=== PATIENT | female | born 1975 | race Two or more races ===

== ENCOUNTER 2023-06-06 13:05 | Emergency (ER) | payer OTHER ==
[~2023-06-06] VITALS: Ht 170.2 cm; Wt 73.5 kg
[2023-06-06] MEDS ORDERED: HUMALOG100 UNIT/2 (13:27)
[2023-06-06] MEDS ORDERED: NEURONTIN300 MG PO (13:28)
[2023-06-06] MEDS ORDERED: LANTUS SOL100 UNIT/1 (13:28)
[2023-06-06] MEDS ORDERED: ADULT LOW DOSE81 M1 PO (13:29)
[2023-06-06] MEDS ORDERED: COZAAR50 MG PO (13:29)
[2023-06-06] MEDS ORDERED: PERCOCET 10-321 EACH PO (13:31)
== END 2023-06-06 18:35 | disposition home or self-care (01) ==
LOC: ER 13:05
PROVIDERS: Nurse Practitioner Family
DX: R10.11 Right upper quadrant pain (principal); K80.20 Calculus of gallbladder without cholecystitis without obstruction; E11.9 Type 2 diabetes mellitus without complications; Z79.4 Long term (current) use of insulin; I10 Essential (primary) hypertension; Z88.8 Allergy status to other drugs, medicaments and biological substances; Z85.43 Personal history of malignant neoplasm of ovary

== ENCOUNTER 2023-10-06 19:06 | Inpatient (IN) | payer OTHER ==
[~2023-10-06] VITALS: Ht 167.6 cm; Wt 68.0 kg
[~2023-10-06 19:06] MED LIST: ADULT LOW DOSE81 M1 PO; COZAAR50 MG PO; HUMALOG100 UNIT/2; LANTUS SOL100 UNIT/1; NEURONTIN300 MG PO; PERCOCET 10-321 EACH PO
[2023-10-07] MEDS ORDERED: KETOROLAC TROMETHAMINE 30 MG VIAL IV STA (00:32)
[2023-10-07] MEDS ORDERED: RINGERS SOLUTION,LACTATED 1,000 ML IV STA (00:32)
[2023-10-07] MEDS ORDERED: CLINDAMYCIN PHOSPHATE 150 MG/ML (900mg) IV STA (00:33)
[2023-10-07] MEDS ORDERED: hydrOXYzine PAMOATE 50 MG CAPSULE PO STA (00:33)
[2023-10-07] MEDS ORDERED: ACETAMINOPHEN 500 MG GEL..CAP PO STA (00:37)
[2023-10-07] MEDS ORDERED: INSULIN REGULAR, HUMAN 300 UNITS/3 ML UNITS SUBCUTANEO STA (00:38)
[2023-10-07] MEDS ORDERED: INSULIN REGULAR, HUMAN 300 UNITS/3 ML UNITS IV STA (00:39)
[2023-10-07 01:44] LABS: HEMATOCRIT 28.5 % (36.0-45.00); HEMOGLOBIN 9.2 g/dL (12.0-15.00); MEAN CELL VOLUME 81.9 fL (80.00-100.00); MEAN CORPUSCULAR HEMOGLOBIN 26.5 pg (27.00-32.0); MEAN CORPUSCULAR HGB CONC 32.4 g/dl (32.0-36.0); PLATELET COUNT 227 K/uL (150-450); RED BLOOD COUNT 3.48 M/uL (4.00-6.00); RED CELL DISTRIBUTION WIDTH 15.2 % (11.5-14.5)
[2023-10-07 02:04] LABS: URINE APPEARANCE Clear; URINE BILIRRUBIN Negative (NEGATIVE); URINE BLOOD Negative; URINE COLOR Yellow; URINE LEUKOCYTE Negative; URINE NITRATE Negative; URINE PROTEIN Negative (NEGATIVE)
[2023-10-07 02:04] LABS: INR 1.07; PARTIAL THROMBOPLASTIN TIME 26.9 SECONDS (22.0-34.0); PROTHROMBIN TIME 11.2 SECONDS (9.0-11.5)
[2023-10-07 02:07] LABS: URINE BACTERIA 341.3 uL (0.0-1933); URINE EPITHELIAL CELLS 29.9 uL (0.0-38.8); URINE WBC 10.8 uL (0.0-23.2)
[2023-10-07 02:12] LABS: URINE GLUCOSE >=1000 MG/DL (NEGATIVE)
[2023-10-07 02:12] LABS: ERYTHROCYTE SEDIMENTATION RATE 100 mm/hr
[2023-10-07 02:14] LABS: ALKALINE PHOSPHATASE 115 U/L (50-136); ALT/SGPT 7 U/L (12-78); ANION GAP 13 (10.0-20.0); BILIRUBIN TOTAL 0.48 mg/dL (0.3-1.2); BLOOD UREA NITROGEN 8 mg/dL (7-18); BUN CREA RATIO 8 (7.0-25.0); CALCIUM 8.7 mg/dL (8.5-10.1); CARBON DIOXIDE 24 mEq/L (21-32); CHLORIDE 98 mmol/L (98-107); CREATININE SERUM 1.05 mg/dL (0.55-1.02); GFR 56.18; GLOBULINA 5.7 G/DL (2.4-3.5); POTASSIUM 3.49 mEq/L (3.5-5.1); SODIUM 132 mmol/L (136-145); TOTAL PROTEIN 8.7 gm/dL (6.4-8.2)
[2023-10-07 02:16] LABS: AST/SGOT < 3 U/L (15-37); OSMOLALITY SERUM 285 MOSM/KG (275-295)
[2023-10-07 02:40] LABS: GLUCOSE FASTING 493 mg/dL (65-100)
[2023-10-07] MEDS ORDERED: MORPHINE SULFATE 4 MG/ML VIAL IV ONE (08:45)
[2023-10-07] MEDS ORDERED: VANCOMYCIN HCL 1,000 MG VIAL IV ONE (09:15)
[2023-10-07] MEDS ORDERED: CEFEPIME HCL 2,000 MG in DEXTROSE 5 % IN WATER 100 ML IV SCH (10:15)
[2023-10-07] MEDS ORDERED: LOSARTAN POTASSIUM 50 MG TABLET PO SCH (10:17)
[2023-10-07] MEDS ORDERED: DEXTROSE 50 % IN WATER 0.5 G/ML DISP.SYRIN IV PRN (10:30)
[2023-10-07] MEDS ORDERED: INSULIN LISPRO 1,000 UNIT/10 ML UNITS SUBCUTANEO PRN (10:30)
[2023-10-07 11:57] LABS: HEMATOCRIT 29.1 % (36.0-45.00); HEMOGLOBIN 9.7 g/dL (12.0-15.00); MEAN CELL VOLUME 80.5 fL (80.00-100.00); MEAN CORPUSCULAR HEMOGLOBIN 26.8 pg (27.00-32.0); MEAN CORPUSCULAR HGB CONC 33.3 g/dl (32.0-36.0); PLATELET COUNT 259 K/uL (150-450); RED BLOOD COUNT 3.62 M/uL (4.00-6.00)
[2023-10-07 12:34] LABS: ALBUMIN 2.9 gm/dL (3.4-5.0); BILIRUBIN TOTAL 0.49 mg/dL (0.3-1.2); CALCIUM 9.1 mg/dL (8.5-10.1); CHOL HDL RATIO 3.1 (0-5.0); CREATININE SERUM 0.73 mg/dL (0.55-1.02); GFR 85.45; GLOBULINA 5.6 G/DL (2.4-3.5); POTASSIUM 3.43 mEq/L (3.5-5.1); TOTAL PROTEIN 8.5 gm/dL (6.4-8.2)
[2023-10-07 12:36] LABS: C-REACTIVE PROTEIN 24.8 MG/DL (0.00-0.29)
[2023-10-07] MEDS ORDERED: INSULIN LISPRO 1,000 UNIT/10 ML UNITS SUBCUTANEO SCH (13:00)
[2023-10-07] MEDS ORDERED: MEPERIDINE HCL/PF 25 MG/ML VIAL IM ONE (16:15)
[2023-10-07] MEDS ORDERED: FAMOTIDINE/PF 20 MG in 0.9 % SODIUM CHLORIDE 8 ML IV PUSH SCH (18:59)
[2023-10-07] MEDS ORDERED: ENALAPRILAT DIHYDRATE 1.25 MG/ML VIAL IV PRN (19:00)
[2023-10-07] MEDS ORDERED: ONDANSETRON HCL 4 MG in 0.9 % SODIUM CHLORIDE 50 ML IV PRN (19:00)
[2023-10-07] MEDS ORDERED: ACETAMINOPHEN 500 MG GEL..CAP PO PRN (19:00)
[2023-10-07] MEDS ORDERED: MORPHINE SULFATE 4 MG/ML VIAL IV PRN (19:15)
[2023-10-07] MEDS ORDERED: 0.9 % SODIUM CHLORIDE 1,000 ML IV SCH (19:15)
[2023-10-07] MEDS ORDERED: LORazepam 0.5 MG TABLET PO SCH (21:00)
[2023-10-07] MEDS ORDERED: VANCOMYCIN HCL 1,000 MG VIAL IV SCH (21:00)
[2023-10-07] MEDS ORDERED: INSULIN GLARGINE,HUM.REC.ANLOG 1,000 UNITS/10 ML UNITS SUBCUTANEO SCH (21:00)
[2023-10-08] MEDS ORDERED: INSULIN LISPRO 1,000 UNIT/10 ML UNITS SUBCUTANEO SCH (08:00)
[2023-10-08] MEDS ORDERED: SOD FERRIC GLUC COMPLX/SUCROSE 62.5 MG in 0.9 % SODIUM CHLORIDE 50 ML IV SCH (11:53)
[2023-10-08] MEDS ORDERED: TRAMADOL HCL 50 MG TABLET PO PRN (13:00)
[2023-10-08] MEDS ORDERED: METRONIDAZOLE/SODIUM CHLORIDE 100 ML IV SCH (20:07)
[2023-10-09] MEDS ORDERED: ENOXAPARIN SODIUM 40 MG/0.4 ML SYRINGE SUBCUTANEO SCH (09:00)
[2023-10-09] MEDS ORDERED: INSULIN GLARGINE,HUM.REC.ANLOG 1,000 UNITS/10 ML UNITS SUBCUTANEO STA (09:11)
[2023-10-09 11:48] LABS: HEMATOCRIT 24.9 % (36.0-45.00); HEMOGLOBIN 8.3 g/dL (12.0-15.00); MEAN CELL VOLUME 79.5 fL (80.00-100.00); MEAN CORPUSCULAR HEMOGLOBIN 26.5 pg (27.00-32.0); MEAN CORPUSCULAR HGB CONC 33.2 g/dl (32.0-36.0); PLATELET COUNT 282 K/uL (150-450); RED BLOOD COUNT 3.13 M/uL (4.00-6.00); RED CELL DISTRIBUTION WIDTH 14.9 % (11.5-14.5)
[2023-10-09 12:28] LABS: CALCIUM 8.2 mg/dL (8.5-10.1); CREATININE SERUM 0.43 mg/dL (0.55-1.02); GFR 157.39; MAGNESIUM 1.5 mg/dL (1.8-2.4); POTASSIUM 3.41 mEq/L (3.5-5.1)
[2023-10-09 12:38] LABS: T4 TOTAL 9.15 UG/DL (4.8-13.9); TSH 0.746 uIU/mL (0.358-3.74)
[2023-10-09] MEDS ORDERED: MAGNESIUM SULFATE IN WATER 50 ML IV ONE (12:45)
[2023-10-09] MEDS ORDERED: FUROsemide 20 MG/2 ML VIAL IV SCH (12:45)
[2023-10-09] MEDS ORDERED: POTASSIUM CHLORIDE 20MEQ/100ML H2O PB IV ONE (12:45)
[2023-10-09] MEDS ORDERED: FAMOtidine 20 MG TABLET PO SCH (21:00)
[2023-10-10] MEDS ORDERED: SODIUM CL 0.9% 50 ML IV.SOLN IV ONE (08:13)
[2023-10-10] MEDS ORDERED: INSULIN GLARGINE,HUM.REC.ANLOG 1,000 UNITS/10 ML UNITS SUBCUTANEO SCH ×3 (09:00)
[2023-10-10] MEDS ORDERED: SODIUM HYPOCHLORITE 1OZ TOP SCH (09:32)
[2023-10-10] MEDS ORDERED: MEPERIDINE HCL/PF 25 MG/ML VIAL IM PRN (12:00)
[2023-10-10 13:05] LABS: HEMATOCRIT 28.9 % (36.0-45.00); HEMOGLOBIN 9.6 g/dL (12.0-15.00); MEAN CELL VOLUME 83.2 fL (80.00-100.00); MEAN CORPUSCULAR HEMOGLOBIN 27.7 pg (27.00-32.0); MEAN CORPUSCULAR HGB CONC 33.2 g/dl (32.0-36.0); PLATELET COUNT 262 K/uL (150-450); RED BLOOD COUNT 3.47 M/uL (4.00-6.00); RED CELL DISTRIBUTION WIDTH 14.2 % (11.5-14.5)
[2023-10-11] MEDS ORDERED: BISACODYL 10 MG/SUPP.RECT SUPP.RECT RECTAL SCH (09:56)
[2023-10-11] MEDS ORDERED: LACTULOSE 20 G/30 ML BLIST.PACK PO STA (10:13)
[2023-10-11] MEDS ORDERED: MAGNESIUM HYDROXIDE 30 ML BLIST.PACK PO STA (10:14)
[2023-10-11] MEDS ORDERED: SUCRALFATE 1 G TABLET PO SCH (14:46)
[2023-10-11] MEDS ORDERED: FAMOTIDINE/PF 20 MG/2 ML VIAL IV PUSH SCH (14:46)
[2023-10-11] MEDS ORDERED: MEPERIDINE HCL/PF 25 MG/ML VIAL IM PRN (17:27)
[2023-10-11] MEDS ORDERED: PROMETHAZINE HCL 25 MG/ML AMPUL IM PRN (17:30)
[2023-10-12] MEDS ORDERED: VANCOMYCIN HCL 5 MG/ML REDILUIDO IV SCH (21:00)
[2023-10-13 07:23] LABS: POTASSIUM 3.03 mEq/L (3.5-5.1)
[2023-10-13 07:27] LABS: CREATININE SERUM 0.23 mg/dL (0.55-1.02); GFR 324.03
[2023-10-13 07:28] LABS: CALCIUM 6.4 mg/dL (8.5-10.1)
[2023-10-13] MEDS ORDERED: LACTOBACILLUS ACIDOPHILUS 1 CAP CAP PO SCH (09:00)
[2023-10-13] MEDS ORDERED: INSULIN GLARGINE,HUM.REC.ANLOG 1,000 UNITS/10 ML UNITS SUBCUTANEO SCH (09:00)
[2023-10-13] MEDS ORDERED: AMINO ACIDS 1 EACH TABLET PO SCH (09:00)
[2023-10-13] MEDS ORDERED: IRON FUM,PS/FOLIC/BCOMP,C NO.9 1 CAP CAPSULE PO SCH (09:00)
[2023-10-13] MEDS ORDERED: FOLIC ACID 1 MG TABLET PO SCH (09:00)
[2023-10-13 09:38] LABS: INR 1.2; PARTIAL THROMBOPLASTIN TIME 24.1 SECONDS (22.0-34.0); PROTHROMBIN TIME 12.4 SECONDS (9.0-11.5)
[2023-10-13 10:06] LABS: ALBUMIN 2.2 gm/dL (3.4-5.0); BILIRUBIN TOTAL 0.42 mg/dL (0.3-1.2); CALCIUM 8.3 mg/dL (8.5-10.1); CREATININE SERUM 0.42 mg/dL (0.55-1.02); GFR 161.72; GLOBULINA 4.6 G/DL (2.4-3.5); POTASSIUM 3.75 mEq/L (3.5-5.1); TOTAL PROTEIN 6.8 gm/dL (6.4-8.2)
[2023-10-13] MEDS ORDERED: POTASSIUM CHLORIDE IN WATER 100 ML IV ONE (10:35)
[2023-10-13 12:07] LABS: HEMATOCRIT 37.8 % (36.0-45.00); HEMOGLOBIN 12.5 g/dL (12.0-15.00); MEAN CELL VOLUME 82.4 fL (80.00-100.00); MEAN CORPUSCULAR HEMOGLOBIN 27.4 pg (27.00-32.0); MEAN CORPUSCULAR HGB CONC 33.2 g/dl (32.0-36.0); PLATELET COUNT 326 K/uL (150-450); RED BLOOD COUNT 4.58 M/uL (4.00-6.00); RED CELL DISTRIBUTION WIDTH 14.8 % (11.5-14.5)
[2023-10-13] MEDS ORDERED: MEPERIDINE HCL/PF 25 MG/ML VIAL IM PRN (21:00)
[2023-10-13] MEDS ORDERED: PROMETHAZINE HCL 25 MG/ML AMPUL IM PRN (21:00)
[2023-10-14] MEDS ORDERED: ONDANSETRON HCL 4 MG in 0.9 % SODIUM CHLORIDE 50 ML IV PRN (05:15)
[2023-10-14 08:35] LABS: ALBUMIN 2.1 gm/dL (3.4-5.0); BILIRUBIN TOTAL 0.31 mg/dL (0.3-1.2); CALCIUM 7.9 mg/dL (8.5-10.1); CREATININE SERUM 0.46 mg/dL (0.55-1.02); GFR 145.61; GLOBULINA 4.1 G/DL (2.4-3.5); MAGNESIUM 1.7 mg/dL (1.8-2.4); POTASSIUM 3.96 mEq/L (3.5-5.1); TOTAL PROTEIN 6.2 gm/dL (6.4-8.2)
[2023-10-14 10:17] LABS: PHOSPHOROUS 1.3 mg/dL (2.5-4.9)
[2023-10-14] MEDS ORDERED: POTASSIUM PHOS,M-BASIC-D-BASIC 45mM/15ml VIAL IV NR (10:30)
[2023-10-14 10:43] LABS: HEMATOCRIT 31.2 % (36.0-45.00); HEMOGLOBIN 10.4 g/dL (12.0-15.00); MEAN CELL VOLUME 82.9 fL (80.00-100.00); MEAN CORPUSCULAR HEMOGLOBIN 27.6 pg (27.00-32.0); MEAN CORPUSCULAR HGB CONC 33.3 g/dl (32.0-36.0); PLATELET COUNT 284 K/uL (150-450); RED BLOOD COUNT 3.77 M/uL (4.00-6.00); RED CELL DISTRIBUTION WIDTH 15.1 % (11.5-14.5)
[2023-10-14 11:09] LABS: ERYTHROCYTE SEDIMENTATION RATE 81 mm/hr
[2023-10-14] MEDS ORDERED: GABAPENTIN 400 MG CAPSULE PO SCH (11:44)
[2023-10-14] MEDS ORDERED: ENALAPRILAT DIHYDRATE 1.25 MG/ML VIAL IV ONE (12:32)
[2023-10-14] MEDS ORDERED: MORPHINE SULFATE 4 MG/ML VIAL IV SCH (13:00)
[2023-10-16 06:41] LABS: HEMATOCRIT 28.7 % (36.0-45.00); HEMOGLOBIN 9.6 g/dL (12.0-15.00); MEAN CELL VOLUME 82.3 fL (80.00-100.00); MEAN CORPUSCULAR HEMOGLOBIN 27.5 pg (27.00-32.0); MEAN CORPUSCULAR HGB CONC 33.4 g/dl (32.0-36.0); PLATELET COUNT 289 K/uL (150-450); RED BLOOD COUNT 3.49 M/uL (4.00-6.00); RED CELL DISTRIBUTION WIDTH 15.2 % (11.5-14.5)
[2023-10-16 07:43] LABS: ALBUMIN 1.9 gm/dL (3.4-5.0); BILIRUBIN TOTAL 0.25 mg/dL (0.3-1.2); CALCIUM 7.9 mg/dL (8.5-10.1); CREATININE SERUM 0.46 mg/dL (0.55-1.02); GFR 145.61; GLOBULINA 3.7 G/DL (2.4-3.5); POTASSIUM 3.32 mEq/L (3.5-5.1); TOTAL PROTEIN 5.6 gm/dL (6.4-8.2)
[2023-10-16] MEDS ORDERED: GABAPENTIN 800 MG TABLET PO SCH (09:00)
[2023-10-16] MEDS ORDERED: POTASSIUM CHLORIDE 20MEQ/100ML H2O PB IV ONE (15:15)
[2023-10-16] MEDS ORDERED: CEFEPIME HCL 2,000 MG in DEXTROSE 5 % IN WATER 100 ML IV SCH (17:00)
[2023-10-16] MEDS ORDERED: FAMOtidine 20 MG TABLET PO SCH (17:00)
[2023-10-16] MEDS ORDERED: METRONIDAZOLE/SODIUM CHLORIDE 100 ML IV SCH (17:00)
[2023-10-16] MEDS ORDERED: LORazepam 1 MG TABLET PO SCH (21:00)
[2023-10-17] MEDS ORDERED: INSULIN LISPRO 1,000 UNIT/10 ML UNITS SUBCUTANEO SCH (08:00)
[2023-10-17] MEDS ORDERED: LEVALBUTEROL HCL 1.25 MG/3 ML SOLUTION IH SCH (09:00)
[2023-10-18] MEDS ORDERED: INSULIN LISPRO 1,000 UNIT/10 ML UNITS SUBCUTANEO SCH (08:00)
[2023-10-18] MEDS ORDERED: BISACODYL 5 MG TABLET.EC PO PRN (08:45)
[2023-10-18] MEDS ORDERED: INSULIN GLARGINE,HUM.REC.ANLOG 1,000 UNITS/10 ML UNITS SUBCUTANEO SCH (09:00)
[2023-10-18] MEDS ORDERED: CEFEPIME HCL 2,000 MG VIAL ONE (16:29)
[2023-10-18] MEDS ORDERED: TERCONAZOLE 20 GM TUBE VAG SCH (20:00)
[2023-10-19] MEDS ORDERED: INSULIN GLARGINE,HUM.REC.ANLOG 1,000 UNITS/10 ML UNITS SUBCUTANEO SCH (09:00)
[2023-10-20 05:29] LABS: MEAN CELL VOLUME 84.5 fL (80.00-100.00); MEAN CORPUSCULAR HGB CONC 34.3 g/dl (32.0-36.0); PLATELET COUNT 185 K/uL (150-450); RED BLOOD COUNT 2.57 M/uL (4.00-6.00); RED CELL DISTRIBUTION WIDTH 15.7 % (11.5-14.5)
[2023-10-20 05:45] LABS: HEMATOCRIT 21.7 % (36.0-45.00); MEAN CORPUSCULAR HEMOGLOBIN 29.1 pg (27.00-32.0)
[2023-10-20 06:00] LABS: HEMOGLOBIN 7.5 g/dL (12.0-15.00)
[2023-10-20] MEDS ORDERED: FUROsemide 20 MG/2 ML VIAL IV SCH (06:15)
[2023-10-20 07:55] LABS: CALCIUM 5.9 mg/dL (8.5-10.1); CREATININE SERUM 0.26 mg/dL (0.55-1.02); GFR 281.27; POTASSIUM 3.08 mEq/L (3.5-5.1)
[2023-10-20] MEDS ORDERED: ONDANSETRON HCL 4 MG in 0.9 % SODIUM CHLORIDE 50 ML IV PRN (08:15)
[2023-10-20] MEDS ORDERED: POTASSIUM CHLORIDE IN WATER 100 ML IV ONE (08:30)
[2023-10-20 08:56] LABS: HEMATOCRIT 35.7 % (36.0-45.00); MEAN CELL VOLUME 84.7 fL (80.00-100.00); MEAN CORPUSCULAR HGB CONC 33.3 g/dl (32.0-36.0); PLATELET COUNT 321 K/uL (150-450); RED BLOOD COUNT 4.22 M/uL (4.00-6.00); RED CELL DISTRIBUTION WIDTH 15.9 % (11.5-14.5)
[2023-10-20 08:57] LABS: HEMOGLOBIN 11.9 g/dL (12.0-15.00); MEAN CORPUSCULAR HEMOGLOBIN 28.1 pg (27.00-32.0)
[2023-10-20] MEDS ORDERED: Calcium Carbonate 1 TAB TABLET PO SCH (09:00)
[2023-10-20] MEDS ORDERED: OxyCODONE HCL/APAP UD (PERCOCET) PO PRN ×2 (13:15→17:20)
[2023-10-20] MEDS ORDERED: POLYETHYLENE GLYCOL 3350 17 GM BLIST.PACK PO SCH (21:00)
[2023-10-21] MEDS ORDERED: MORPHINE SULFATE 2 MG/ML CARTRIDGE IV STA (12:16)
[2023-10-21] MEDS ORDERED: MORPHINE SULFATE 2 MG/ML CARTRIDGE IV PRN (12:30)
[2023-10-21] MEDS ORDERED: GABAPENTIN 400 MG CAPSULE PO SCH (17:00)
[2023-10-22 12:16] LABS: CALCIUM 8.8 mg/dL (8.5-10.1); CREATININE SERUM 0.58 mg/dL (0.55-1.02); GFR 111.43; POTASSIUM 4.09 mEq/L (3.5-5.1)
[2023-10-23] MEDS ORDERED: TRAMADOL HCL 50 MG TABLET PO SCH (15:57)
[2023-10-23] MEDS ORDERED: OxyCODONE HCL/APAP UD (PERCOCET) PO SCH (17:45)
[2023-10-23] MEDS ORDERED: DOCUSATE SODIUM 100MG CAP PO SCH (21:00)
[2023-10-24] MEDS ORDERED: METROnidazole 500 MG TABLET PO SCH (01:00)
[2023-10-24] MEDS ORDERED: LORazepam 1 MG TABLET PO SCH (21:15)
[2023-10-25] MEDS ORDERED: METRONIDAZOLE/SODIUM CHLORIDE 500 MG/100 ML PIGGYBACK IV SCH (01:00)
[2023-10-25 07:01] LABS: HEMATOCRIT 28.3 % (36.0-45.00); MEAN CELL VOLUME 83.2 fL (80.00-100.00); MEAN CORPUSCULAR HGB CONC 33.6 g/dl (32.0-36.0); PLATELET COUNT 180 K/uL (150-450); RED BLOOD COUNT 3.41 M/uL (4.00-6.00); RED CELL DISTRIBUTION WIDTH 17.2 % (11.5-14.5)
[2023-10-25 07:14] LABS: HEMOGLOBIN 9.5 g/dL (12.0-15.00); MEAN CORPUSCULAR HEMOGLOBIN 27.8 pg (27.00-32.0)
[2023-10-25 07:29] LABS: ALBUMIN 2.4 gm/dL (3.4-5.0); BILIRUBIN TOTAL 0.24 mg/dL (0.3-1.2); CALCIUM 8.4 mg/dL (8.5-10.1); CREATININE SERUM 0.64 mg/dL (0.55-1.02); GFR 99.47; GLOBULINA 4.1 G/DL (2.4-3.5); POTASSIUM 4.25 mEq/L (3.5-5.1); TOTAL PROTEIN 6.5 gm/dL (6.4-8.2)
[2023-10-25] MEDS ORDERED: ONDANSETRON HCL 2 MG/ML VIAL IV PRN (12:30)
[2023-10-25] MEDS ORDERED: ACETAMINOPHEN 500 MG GEL..CAP PO PRN (18:30)
== END 2023-10-26 17:30 | disposition home or self-care (01) | DRG 580 ==
LOC: ER 19:07 → MEDI 10-07 18:00
PROVIDERS: Internal Medicine; Internal Medicine Endocrinology, Diabetes & Metabolism; Internal Medicine Geriatric Medicine; Specialist; ADMIT Internal Medicine; ATTEND Internal Medicine
PROC: BQ3LZZZ Magnetic Resonance Imaging (MRI) of Right Foot (ICD-10-PCS; 2023-10-07)
PROC: 02HV33Z Insertion of Infusion Device into Superior Vena Cava, Percutaneous Approach (ICD-10-PCS; 2023-10-09)
PROC: 30233N1 Transfusion of Nonautologous Red Blood Cells into Peripheral Vein, Percutaneous Approach (ICD-10-PCS; 2023-10-09)
PROC: B44HZZZ Ultrasonography of Bilateral Lower Extremity Arteries (ICD-10-PCS; 2023-10-10)
PROC: 0Y6X0Z0 Detachment at Right 5th Toe, Complete, Open Approach (ICD-10-PCS; principal; 2023-10-14 07:00)
PROC: 3E0F7GC Introduction of Other Therapeutic Substance into Respiratory Tract, Via Natural or Artificial Opening (ICD-10-PCS; 2023-10-17)
PROC: 0JBQ3ZZ Excision of Right Foot Subcutaneous Tissue and Fascia, Percutaneous Approach (ICD-10-PCS; 2023-10-21)
PROC: 0JBQ3ZZ Excision of Right Foot Subcutaneous Tissue and Fascia, Percutaneous Approach (ICD-10-PCS; 2023-10-24)
DX: L97.518 Non-pressure chronic ulcer of other part of right foot with other specified severity (principal); E11.52 Type 2 diabetes mellitus with diabetic peripheral angiopathy with gangrene; I96 Gangrene, not elsewhere classified; L03.115 Cellulitis of right lower limb; M86.8X7 Other osteomyelitis, ankle and foot; E11.621 Type 2 diabetes mellitus with foot ulcer; B95.61 Methicillin susceptible Staphylococcus aureus infection as the cause of diseases classified elsewhere; Z79.4 Long term (current) use of insulin; D64.9 Anemia, unspecified; D72.828 Other elevated white blood cell count; F43.23 Adjustment disorder with mixed anxiety and depressed mood; E11.65 Type 2 diabetes mellitus with hyperglycemia
CPT/HCPCS: 73722

== ENCOUNTER 2024-12-27 16:23 | Emergency (ER) | payer OTHER ==
[~2024-12-27] VITALS: Ht 170.2 cm; Wt 63.5 kg
[~2024-12-27 16:23] MED LIST changes: +BACTRIM DS TAB1 EACH PO
[2024-12-27] MEDS ORDERED: KETOROLAC TROMETHAMINE 60 MG VIAL IM ONE ×2 (18:45→19:54)
[2024-12-27 19:56] LABS: ERYTHROCYTE SEDIMENTATION RATE 55 mm/hr; HEMOGLOBIN 12.6 g/dL (12.0-15.00); MEAN CORPUSCULAR HEMOGLOBIN 30.3 pg (27.00-32.0); PLATELET COUNT 181 K/uL (150-450); RED BLOOD COUNT 4.16 M/uL (4.00-6.00); RED CELL DISTRIBUTION WIDTH 13.1 % (11.5-14.5)
[2024-12-27 20:11] LABS: POTASSIUM 4.61 mEq/L (3.5-5.1)
[2024-12-27 20:13] LABS: CALCIUM 9.2 mg/dL (8.5-10.1)
[2024-12-27 20:20] LABS: ALBUMIN 4.1 gm/dL (3.4-5.0); BILIRUBIN TOTAL 0.45 mg/dL (0.3-1.2); CREATININE SERUM 1.02 mg/dL (0.55-1.02); GFR 57.6; GLOBULINA 3.8 G/DL (2.4-3.5); TOTAL PROTEIN 7.9 gm/dL (6.4-8.2)
[2024-12-27] MEDS ORDERED: CEFTRIAXONE SODIUM 1,000 MG VIAL IM ONE (21:00)
[2024-12-27] MEDS ORDERED: CEFTRIAXONE SODIUM 1,000 MG VIAL ONE (21:30)
[2024-12-27] MEDS ORDERED: CEPHALEXIN500 MG PO (21:30)
== END 2024-12-27 21:55 | disposition home or self-care (01) ==
LOC: ER 16:24
PROVIDERS: Preventive Medicine Public Health & General Preventive Medicine
DX: S90.425A Blister (nonthermal), left lesser toe(s), initial encounter (principal); X58.XXXA Exposure to other specified factors, initial encounter; Y93.89 Activity, other specified; Y92.89 Other specified places as the place of occurrence of the external cause; Y99.9 Unspecified external cause status; I10 Essential (primary) hypertension; E11.9 Type 2 diabetes mellitus without complications; Z79.4 Long term (current) use of insulin; Z87.09 Personal history of other diseases of the respiratory system; Z88.8 Allergy status to other drugs, medicaments and biological substances

== ENCOUNTER 2025-03-22 18:45 | Inpatient (IN) | payer OTHER ==
[~2025-03-22] VITALS: Ht 152.4 cm; Wt 54.4 kg
[~2025-03-22 18:45] MED LIST changes: +CEPHALEXIN500 MG PO
[2025-03-22] MEDS ORDERED: TRAJENTA PO (19:40)
[2025-03-22] MEDS ORDERED: JARDIANCE10 MG (19:40)
--- NOTE | 2025-03-22 19:52 | NUR ---
PACIENTE LAERTA Y ORIENTADA X3, QUIEN VIENE SER ADMITIDA POR ULCERA EN PIE ARTHUR POR DR. SUSHMA POST. REIFERE ESTAR CON DICHA SITUACION DESDE HACE 4 MESES.
[2025-03-22] MEDS ORDERED: PIPERACILLIN/TAZOBACTAM SODIUM 3.375 GM VIAL IV ONE (21:45)
[2025-03-22] MEDS ORDERED: 0.9 % SODIUM CHLORIDE 1,000 ML IV SCH (23:30)
[2025-03-22] MEDS ORDERED: INSULIN LISPRO 1,000 UNIT/10 ML UNITS SUBCUTANEO PRN (23:45)
[2025-03-22] MEDS ORDERED: DEXTROSE 50 % IN WATER 0.5 G/ML VIAL IV PRN (23:45)
[2025-03-22] MEDS ORDERED: MORPHINE SULFATE 2 MG/ML SYRINGE IV PRN (23:45)
[2025-03-22] MEDS ORDERED: ACETAMINOPHEN 325 MG TABLET PO PRN (23:45)
--- NOTE | 2025-03-22 23:56 | NUR ---
PACIENTE ALERTA Y ORIENTADA X3. SE EDUCA A PACIENTE SOBRE PROCESO DE CHERI DE MUESTRAS, CANALIZACION Y ADMINISTRACION DE MEDICAMENTOS, REFIERE ENTENDER. SE EJECUTAN ORDENES BAJO MEDIDAS ASEPTICAS.
[2025-03-22 23:59] LABS: BASO % 0.5 % (0.1-1.2); EOS # 0.10 (0.04-0.54); EOS % 0.9 % (0.7-7.0); LYMPH # 1.72 (1.18-3.74); LYMPH % 16.2 % (19.3-53.1); MEAN PLATELET VOLUME 12.00 fl (9.4-12.4); MONO # 0.52 (0.24-0.82); MONO % 4.9 % (4.7-12.5); NEUT # 7.95 (1.56-6.13); NEUT % 75.0 % (34.0-71.1); RED CELL DISTRIBUTION WIDTH 12.7 % (11.6-14.4)
[2025-03-23 00:08] LABS: ERYTHROCYTE SEDIMENTATION RATE 108 mm/hr (0-20)
[2025-03-23 00:23] LABS: INR 1.0
[2025-03-23 00:24] LABS: BUN CREA RATIO 17.0 (7.0-25.0); CREATININE SERUM 0.81 mg/dL (0.55-1.02); GFR 75.15
[2025-03-23 00:25] LABS: GLUCOSE FASTING 250.0 mg/dL (65-100); OSMOLALITY SERUM 292.0 MOSM/KG (275-295)
[2025-03-23 03:30] VITALS: BP 125/85; O2SAT 97
[2025-03-23] MEDS ORDERED: PIPERACILLIN/TAZOBACTAM SODIUM 3.375 GM in 0.9 % SODIUM CHLORIDE 100 ML IV SCH (06:00)
[2025-03-23 08:00] VITALS: BP 125/73; O2SAT 97
[2025-03-23] MEDS ORDERED: LOSARTAN POTASSIUM 100 MG TABLET PO SCH (09:00)
[2025-03-23] MEDS ORDERED: ASPIRIN 81 MG TAB.CHEW PO SCH (09:00)
[2025-03-23 12:15] LABS: URINE APPEARANCE Clear; URINE BILIRRUBIN Negative (NEGATIVE); URINE BLOOD Negative; URINE COLOR Yellow; URINE KETONE Negative (NEGATIVE); URINE LEUKOCYTE Negative; URINE NITRATE Negative; URINE PROTEIN Negative (NEGATIVE); URINE UROBILINOGEN 1.0 E.U./dl
[2025-03-23 12:16] LABS: URINE BACTERIA 170.0 uL (0.0-1933); URINE CAST 0.00 uL (0.0-1.40); URINE EPITHELIAL CELLS 16.4 uL (0.0-38.8); URINE GLUCOSE >=1000 MG/DL (NEGATIVE); URINE RBC 1.0 uL (0.0-20.8); URINE WBC 3.0 uL (0.0-23.2)
[2025-03-23 16:00] VITALS: BP 124/74; O2SAT 100
[2025-03-23] MEDS ORDERED: GABAPENTIN 400 MG CAPSULE PO SCH (17:51)
[2025-03-23] MEDS ORDERED: OxyCODONE HCL 5 MG TABLET (ROXICODONE) PO PRN (18:00)
[2025-03-24 01:38] VITALS: BP 108/70; O2SAT 99
[2025-03-24] MEDS ORDERED: INSULIN LISPRO 1,000 UNIT/10 ML UNITS SUBCUTANEO SCH (07:00)
[2025-03-24 08:00] VITALS: BP 145/83; O2SAT 100
[2025-03-24] MEDS ORDERED: SODIUM HYPOCHLORITE 1OZ TOP SCH (09:00)
[2025-03-24] MEDS ORDERED: PANTOPRAZOLE SODIUM 40 MG TABLET.DR PO SCH (09:00)
[2025-03-24 16:50] VITALS: BP 163/70; O2SAT 100
[2025-03-24] MEDS ORDERED: INSULIN GLARGINE,HUM.REC.ANLOG 1,000 UNITS/10 ML UNITS SUBCUTANEO SCH (21:00)
[2025-03-25 00:30] VITALS: BP 108/71; O2SAT 98
[2025-03-25] MEDS ORDERED: MORPHINE SULFATE 2 MG/ML CARTRIDGE IV PRN (07:30)
[2025-03-25 08:00] VITALS: BP 152/80; O2SAT 100
[2025-03-25] MEDS ORDERED: INSULIN LISPRO 1,000 UNIT/10 ML UNITS SUBCUTANEO SCH (08:00)
[2025-03-25] MEDS ORDERED: INSULIN GLARGINE,HUM.REC.ANLOG 1,000 UNITS/10 ML UNITS SUBCUTANEO SCH (09:00)
[2025-03-25 13:39] LABS: BASO % 0.5 % (0.1-1.2); EOS # 0.08 (0.04-0.54); EOS % 0.8 % (0.7-7.0); LYMPH # 1.41 (1.18-3.74); LYMPH % 14.6 % (19.3-53.1); MEAN PLATELET VOLUME 11.90 fl (9.4-12.4); MONO # 0.36 (0.24-0.82); MONO % 3.7 % (4.7-12.5); NEUT # 7.47 (1.56-6.13); NEUT % 77.7 % (34.0-71.1); RED CELL DISTRIBUTION WIDTH 12.2 % (11.6-14.4)
[2025-03-25 14:40] LABS: ALT/SGPT 13.0 U/L (12-78); AST/SGOT 11.0 U/L (15-37); BILIRUBIN TOTAL 0.72 mg/dL (0.3-1.2); BUN CREA RATIO 17.0 (7.0-25.0); CREATININE SERUM 0.59 mg/dL (0.55-1.02); GFR 108.33; GLOBULINA 3.6 G/DL (2.4-3.5); GLUCOSE FASTING 115.0 mg/dL (65-100); OSMOLALITY SERUM 283.0 MOSM/KG (275-295)
[2025-03-25 15:33] VITALS: BP 139/84; O2SAT 100
[2025-03-25] MEDS ORDERED: ONDANSETRON HCL 4 MG in 0.9 % SODIUM CHLORIDE 50 ML IV PRN (15:45)
[2025-03-25] MEDS ORDERED: PIPERACILLIN/TAZOBACTAM SODIUM 4.5 GM VIAL IV SCH (17:00)
[2025-03-25 19:12] LABS: chla t Negative (Negative); neiss Negative (Negative)
[2025-03-26 01:24] VITALS: BP 91/53; O2SAT 97
[2025-03-26 08:00] VITALS: BP 122/75; O2SAT 100
[2025-03-26] MEDS ORDERED: CEFEPIME HCL 2,000 MG in 0.9 % SODIUM CHLORIDE 100 ML IV NR (10:00)
[2025-03-26 16:10] VITALS: BP 153/94; O2SAT 100
[2025-03-26] MEDS ORDERED: CEFEPIME HCL 2,000 MG in 0.9 % SODIUM CHLORIDE 100 ML IV SCH (17:00)
[2025-03-27 04:42] VITALS: BP 110/66; O2SAT 97
[2025-03-27 08:00] VITALS: BP 152/86; O2SAT 99
[2025-03-27] MEDS ORDERED: MORPHINE SULFATE 4 MG/ML CARTRIDGE IV PRN (08:00)
[2025-03-27 16:34] VITALS: BP 125/82; O2SAT 96
[2025-03-28 00:42] VITALS: BP 96/67; O2SAT 96
[2025-03-28] MEDS ORDERED: MORPHINE SULFATE 2 MG/ML CARTRIDGE IV PRN (03:30)
[2025-03-28] MEDS ORDERED: KETOROLAC TROMETHAMINE 30 MG VIAL IV PRN (03:30)
[2025-03-28 09:00] VITALS: BP 108/68; O2SAT 98
[2025-03-28 16:00] VITALS: BP 142/81; O2SAT 97
[2025-03-29 02:09] VITALS: BP 134/73; O2SAT 97
[2025-03-29 09:36] VITALS: BP 155/83; O2SAT 99
[2025-03-29] MEDS ORDERED: CLOPIDOGREL BISULFATE 75 MG TABLET PO NR (11:00)
[2025-03-29 16:00] VITALS: BP 121/80; O2SAT 100
[2025-03-30 01:28] VITALS: BP 127/79; O2SAT 98
[2025-03-30 08:00] VITALS: BP 153/88; O2SAT 100
[2025-03-30] MEDS ORDERED: CLOPIDOGREL BISULFATE 75 MG TABLET PO SCH (09:00)
[2025-03-30 16:00] VITALS: BP 148/80; O2SAT 98
[2025-03-31] VITALS: BP 166/86; O2SAT 99
[2025-03-31 07:11] LABS: BASO % 0.5 % (0.1-1.2); EOS # 0.21 (0.04-0.54); EOS % 3.5 % (0.7-7.0); LYMPH # 1.51 (1.18-3.74); LYMPH % 25.1 % (19.3-53.1); MEAN PLATELET VOLUME 12.00 fl (9.4-12.4); MONO # 0.45 (0.24-0.82); MONO % 7.5 % (4.7-12.5); NEUT # 3.75 (1.56-6.13); NEUT % 62.2 % (34.0-71.1); RED CELL DISTRIBUTION WIDTH 13.1 % (11.6-14.4)
[2025-03-31] MEDS ORDERED: MORPHINE SULFATE 4 MG/ML CARTRIDGE IV PRN (07:45)
[2025-03-31 07:56] LABS: BUN CREA RATIO 41.0 (7.0-25.0); CREATININE SERUM 0.54 mg/dL (0.55-1.02); GFR 119.99; GLUCOSE FASTING 153.0 mg/dL (65-100); OSMOLALITY SERUM 297.0 MOSM/KG (275-295)
[2025-03-31 09:21] VITALS: BP 162/85; O2SAT 99
[2025-03-31 16:00] VITALS: BP 166/93; O2SAT 99
[2025-03-31 20:00] VITALS: BP 160/92; O2SAT 97
[2025-04-01 01:40] VITALS: BP 138/80; O2SAT 98
[2025-04-01 08:00] VITALS: BP 144/79; O2SAT 97
[2025-04-01 08:21] LABS: BASO % 0.6 % (0.1-1.2); EOS # 0.19 (0.04-0.54); EOS % 2.4 % (0.7-7.0); LYMPH # 1.64 (1.18-3.74); LYMPH % 21.1 % (19.3-53.1); MEAN PLATELET VOLUME 11.80 fl (9.4-12.4); MONO # 0.56 (0.24-0.82); MONO % 7.2 % (4.7-12.5); NEUT # 5.24 (1.56-6.13); NEUT % 67.7 % (34.0-71.1); RED CELL DISTRIBUTION WIDTH 13.1 % (11.6-14.4)
[2025-04-01] MEDS ORDERED: FAMOTIDINE/PF 20 MG/2 ML VIAL IV SCH (09:00)
[2025-04-01] MEDS ORDERED: ONDANSETRON HCL 4 MG in 0.9 % SODIUM CHLORIDE 50 ML IV PRN (09:00)
[2025-04-01 17:30] VITALS: BP 147/93; O2SAT 98
[2025-04-02 02:38] VITALS: BP 107/65; O2SAT 99
[2025-04-02 07:07] LABS: HEPATITIS A ANTIBODY IGG Negative (Negative); HEPATITIS A IGM Negative (Negative); HEPATITIS B CORE IGG Negative (Negative)
[2025-04-02 08:00] VITALS: BP 137/74; O2SAT 98
[2025-04-02] MEDS ORDERED: ONDANSETRON HCL 2 MG/ML VIAL IV STA (08:49)
[2025-04-02] MEDS ORDERED: MORPHINE SULFATE 4 MG/ML CARTRIDGE IV PRN (09:00)
[2025-04-02 17:37] VITALS: BP 114/75; O2SAT 100
[2025-04-03 02:03] VITALS: BP 94/58; O2SAT 100
[2025-04-03 08:00] VITALS: BP 150/82; O2SAT 99
[2025-04-03 18:31] VITALS: BP 109/70; O2SAT 99
[2025-04-03 23:07] LABS: hav igm Negative (Negative); hep b c Negative (Negative); hep b s ag Negative (Negative)
[2025-04-04 02:27] VITALS: BP 90/57; BP 92/60; O2SAT 99
[2025-04-04 07:00] VITALS: BP 127/79; O2SAT 99
[2025-04-04] MEDS ORDERED: MORPHINE SULFATE 4 MG/ML CARTRIDGE IV PRN (11:30)
[2025-04-04 16:00] VITALS: BP 139/81; O2SAT 100
[2025-04-04 17:12] LABS: HEPATITIS B CORE IGM Negative (Negative); HEPATITIS BE ANTIGEN Negative (Negative)
[2025-04-05 01:00] VITALS: BP 137/83; O2SAT 100
[2025-04-05 08:00] VITALS: BP 144/80; O2SAT 98
[2025-04-05 16:00] VITALS: BP 128/75; O2SAT 100
[2025-04-06 01:17] VITALS: BP 89/53; O2SAT 97
[2025-04-06 10:30] VITALS: BP 162/90; O2SAT 100
[2025-04-06 16:00] VITALS: BP 157/80; O2SAT 99
[2025-04-06] MEDS ORDERED: ONDANSETRON HCL 4 MG in 0.9 % SODIUM CHLORIDE 50 ML IV PRN (19:30)
[2025-04-06] MEDS ORDERED: MORPHINE SULFATE 4 MG/ML CARTRIDGE IV PRN (19:30)
[2025-04-07 01:28] VITALS: BP 87/55; O2SAT 98
[2025-04-07 08:00] VITALS: BP 157/85; O2SAT 100
[2025-04-07] MEDS ORDERED: INSULIN LISPRO 1,000 UNIT/10 ML UNITS SUBCUTANEO PRN (08:45)
[2025-04-07] MEDS ORDERED: INSULIN GLARGINE,HUM.REC.ANLOG 1,000 UNITS/10 ML UNITS SUBCUTANEO SCH (09:00)
[2025-04-07 16:00] VITALS: BP 160/83; O2SAT 100
[2025-04-07 16:53] LABS: BASO % 0.4 % (0.1-1.2); EOS # 0.14 (0.04-0.54); EOS % 1.7 % (0.7-7.0); LYMPH # 1.26 (1.18-3.74); LYMPH % 15.3 % (19.3-53.1); MEAN PLATELET VOLUME 12.30 fl (9.4-12.4); MONO # 0.44 (0.24-0.82); MONO % 5.3 % (4.7-12.5); NEUT # 6.33 (1.56-6.13); NEUT % 76.7 % (34.0-71.1); RED CELL DISTRIBUTION WIDTH 13.2 % (11.6-14.4)
[2025-04-07 17:13] LABS: ALT/SGPT 11.0 U/L (12-78); AST/SGOT 11.0 U/L (15-37); BILIRUBIN TOTAL 0.47 mg/dL (0.3-1.2); BUN CREA RATIO 32.0 (7.0-25.0); CREATININE SERUM 0.63 mg/dL (0.55-1.02); GFR 100.44; GLOBULINA 3.3 G/DL (2.4-3.5); OSMOLALITY SERUM 289.0 MOSM/KG (275-295)
[2025-04-07 17:20] LABS: GLUCOSE FASTING 325.0 mg/dL (65-100)
[2025-04-08 01:35] VITALS: BP 105/55; O2SAT 100
[2025-04-08] MEDS ORDERED: INSULIN GLARGINE,HUM.REC.ANLOG 1,000 UNITS/10 ML UNITS SUBCUTANEO SCH (09:00)
[2025-04-08 16:00] VITALS: BP 144/82; O2SAT 99
[2025-04-09 00:37] VITALS: BP 127/77; O2SAT 97
[2025-04-09 09:54] VITALS: BP 150/75; O2SAT 99
[2025-04-09 16:15] VITALS: BP 148/83; O2SAT 98
[2025-04-10 01:01] VITALS: BP 102/67; O2SAT 100
[2025-04-10 08:00] VITALS: BP 135/80; O2SAT 96
[2025-04-10 08:44] LABS: BASO % 0.5 % (0.1-1.2); EOS # 0.22 (0.04-0.54); EOS % 3.0 % (0.7-7.0); LYMPH # 1.77 (1.18-3.74); LYMPH % 24.0 % (19.3-53.1); MEAN PLATELET VOLUME 11.50 fl (9.4-12.4); MONO # 0.67 (0.24-0.82); MONO % 9.1 % (4.7-12.5); NEUT # 4.59 (1.56-6.13); NEUT % 62.2 % (34.0-71.1); RED CELL DISTRIBUTION WIDTH 13.7 % (11.6-14.4)
[2025-04-10 09:33] LABS: ALT/SGPT 15.0 U/L (12-78); AST/SGOT 9.0 U/L (15-37); BILIRUBIN TOTAL 0.32 mg/dL (0.3-1.2); BUN CREA RATIO 28.0 (7.0-25.0); CREATININE SERUM 1.04 mg/dL (0.55-1.02); GFR 56.32; GLOBULINA 3.3 G/DL (2.4-3.5); GLUCOSE FASTING 95.0 mg/dL (65-100); OSMOLALITY SERUM 291.0 MOSM/KG (275-295)
[2025-04-10 16:00] VITALS: BP 146/71; O2SAT 100
[2025-04-10] MEDS ORDERED: NA PHOS,M-B/NA PHOS,DI-BA 1 BOTTLE ENEMA RECTAL NR (18:00)
[2025-04-11] MEDS ORDERED: MORPHINE SULFATE 4 MG/ML CARTRIDGE IV PRN (09:45)
[2025-04-11] MEDS ORDERED: NA PHOS,M-B/NA PHOS,DI-BA 1 BOTTLE ENEMA RECTAL NR (14:00)
[2025-04-11 17:14] VITALS: BP 100/63; O2SAT 97
[2025-04-12 01:18] VITALS: BP 69/45; O2SAT 97
[2025-04-12 16:00] VITALS: BP 117/76; O2SAT 100
[2025-04-13 01:45] VITALS: BP 77/45; O2SAT 96
[2025-04-13 08:04] LABS: BASO % 0.5 % (0.1-1.2); EOS # 0.35 (0.04-0.54); EOS % 3.2 % (0.7-7.0); LYMPH # 3.65 (1.18-3.74); LYMPH % 33.1 % (19.3-53.1); MEAN PLATELET VOLUME 12.60 fl (9.4-12.4); MONO # 0.91 (0.24-0.82); MONO % 8.2 % (4.7-12.5); NEUT # 5.93 (1.56-6.13); NEUT % 53.7 % (34.0-71.1); RED CELL DISTRIBUTION WIDTH 14.0 % (11.6-14.4)
[2025-04-13 08:18] LABS: BUN CREA RATIO 49.0 (7.0-25.0); CREATININE SERUM 1.16 mg/dL (0.55-1.02); GFR 49.65; GLUCOSE FASTING 62.0 mg/dL (65-100); OSMOLALITY SERUM 304.0 MOSM/KG (275-295)
[2025-04-13 08:30] VITALS: BP 170/91; O2SAT 100
[2025-04-13 16:00] VITALS: BP 127/72; O2SAT 100
[2025-04-14 00:42] VITALS: BP 95/64; O2SAT 97
[2025-04-14 09:05] VITALS: BP 137/76; O2SAT 100
[2025-04-14] MEDS ORDERED: MORPHINE SULFATE 4 MG/ML CARTRIDGE IV PRN (15:45)
[2025-04-14 17:25] VITALS: BP 137/85; O2SAT 100
[2025-04-15 02:01] VITALS: BP 102/68; O2SAT 98
[2025-04-15 09:03] VITALS: BP 132/72; O2SAT 99
[2025-04-15 17:32] VITALS: BP 166/85; O2SAT 99
[2025-04-16] VITALS: BP 79/39; O2SAT 99
[2025-04-16 09:32] VITALS: BP 100/62; O2SAT 98
[2025-04-16] MEDS ORDERED: KETOROLAC TROMETHAMINE 30 MG VIAL IV NR (10:00)
[2025-04-16 16:46] VITALS: BP 161/85
[2025-04-16] MEDS ORDERED: KETOROLAC TROMETHAMINE 30 MG VIAL IV SCH (17:00)
[2025-04-17 01:39] VITALS: BP 104/67; O2SAT 98
[2025-04-17 09:31] VITALS: BP 174/90; O2SAT 100
[2025-04-17 18:52] VITALS: BP 128/60
[2025-04-18 00:56] VITALS: BP 123/66; O2SAT 100
[2025-04-18] MEDS ORDERED: CEFEPIME HCL 2,000 MG VIAL ONE (08:10)
[2025-04-18 09:56] VITALS: BP 166/86; O2SAT 99
[2025-04-18] MEDS ORDERED: ONDANSETRON HCL 2 MG/ML VIAL IV STA (11:28)
[2025-04-18] MEDS ORDERED: ONDANSETRON HCL 2 MG/ML VIAL IV PRN (11:30)
[2025-04-18 18:18] VITALS: BP 156/78
[2025-04-19 09:17] VITALS: BP 163/92
[2025-04-19 17:40] VITALS: BP 159/77
[2025-04-20 01:27] VITALS: BP 133/78; O2SAT 98
[2025-04-20 08:59] VITALS: BP 169/83
[2025-04-20 12:27] LABS: BASO % 0.5 % (0.1-1.2); EOS # 0.20 (0.04-0.54); EOS % 2.6 % (0.7-7.0); LYMPH # 1.15 (1.18-3.74); LYMPH % 15.1 % (19.3-53.1); MEAN PLATELET VOLUME 11.90 fl (9.4-12.4); MONO # 0.53 (0.24-0.82); MONO % 7.0 % (4.7-12.5); NEUT # 5.64 (1.56-6.13); NEUT % 74.0 % (34.0-71.1); RED CELL DISTRIBUTION WIDTH 13.6 % (11.6-14.4)
[2025-04-20 18:46] VITALS: BP 148/77
[2025-04-21 01:59] VITALS: BP 90/60; O2SAT 97
[2025-04-21 09:04] VITALS: BP 174/80; O2SAT 100
[2025-04-21 18:05] VITALS: BP 160/84; O2SAT 100
[2025-04-21] MEDS ORDERED: CEFEPIME HCL 2,000 MG in 0.9 % SODIUM CHLORIDE 100 ML IV SCH (21:00)
[2025-04-22 01:44] VITALS: BP 147/75; O2SAT 95
[2025-04-22] MEDS ORDERED: MORPHINE SULFATE 4 MG/ML CARTRIDGE IV PRN (04:15)
[2025-04-22 08:33] VITALS: BP 124/74; O2SAT 93
[2025-04-22 16:55] VITALS: BP 137/71; O2SAT 93
[2025-04-22] MEDS ORDERED: PROMETHAZINE HCL 25 MG/ML AMPUL IM PRN (18:15)
[2025-04-22] MEDS ORDERED: FAMOTIDINE/PF 20 MG/2 ML VIAL IV PUSH SCH (21:15)
[2025-04-23 01:53] VITALS: BP 151/73; O2SAT 93
[2025-04-23 08:35] VITALS: BP 150/88; O2SAT 96
[2025-04-23] MEDS ORDERED: ONDANSETRON HCL 2 MG/ML VIAL IV PRN (15:15)
[2025-04-23 15:27] LABS: ALT/SGPT 65.0 U/L (12-78); AST/SGOT 38.0 U/L (15-37); BILIRUBIN TOTAL 0.96 mg/dL (0.3-1.2); BUN CREA RATIO 25.0 (7.0-25.0); CREATININE SERUM 0.68 mg/dL (0.55-1.02); GFR 91.96; GLOBULINA 4.0 G/DL (2.4-3.5); GLUCOSE FASTING 160.0 mg/dL (65-100); OSMOLALITY SERUM 284.0 MOSM/KG (275-295)
[2025-04-23 17:34] VITALS: BP 160/81; O2SAT 98
[2025-04-23 17:49] LABS: BASO % 0.6 % (0.1-1.2); EOS # 0.12 (0.04-0.54); EOS % 1.5 % (0.7-7.0); LYMPH # 1.44 (1.18-3.74); LYMPH % 17.5 % (19.3-53.1); MEAN PLATELET VOLUME 11.90 fl (9.4-12.4); MONO # 0.68 (0.24-0.82); MONO % 8.3 % (4.7-12.5); NEUT # 5.79 (1.56-6.13); NEUT % 70.3 % (34.0-71.1); RED CELL DISTRIBUTION WIDTH 13.4 % (11.6-14.4)
[2025-04-24] MEDS ORDERED: CEFEPIME HCL 2,000 MG in 0.9 % SODIUM CHLORIDE 100 ML IV SCH (01:00)
[2025-04-24 02:37] VITALS: BP 146/84; O2SAT 98
[2025-04-24 08:04] VITALS: BP 156/77
[2025-04-24] MEDS ORDERED: MORPHINE SULFATE 4 MG/ML CARTRIDGE IV PRN (09:30)
[2025-04-24 17:34] VITALS: BP 138/77; O2SAT 100
[2025-04-25 02:17] VITALS: BP 102/63; O2SAT 93
[2025-04-25 09:24] VITALS: BP 137/82; O2SAT 100
[2025-04-25 16:42] VITALS: BP 125/78; O2SAT 100
[2025-04-25] MEDS ORDERED: PROMETHAZINE HCL 25 MG/ML AMPUL IM PRN (17:45)
[2025-04-26 02:22] VITALS: BP 131/77; O2SAT 98
[2025-04-26 07:30] VITALS: BP 109/59; O2SAT 98
[2025-04-26 17:38] VITALS: BP 144/72
[2025-04-27 00:08] VITALS: BP 129/78; O2SAT 96
[2025-04-27 07:30] VITALS: BP 127/66
[2025-04-27 17:53] VITALS: BP 144/75
[2025-04-28 01:09] VITALS: BP 111/62; O2SAT 98
[2025-04-28 08:13] VITALS: BP 127/79; O2SAT 98
[2025-04-28 17:11] VITALS: BP 168/89
[2025-04-29 00:18] VITALS: BP 101/66
[2025-04-29] MEDS ORDERED: INSULIN GLARGINE,HUM.REC.ANLOG 1,000 UNITS/10 ML UNITS SUBCUTANEO SCH (09:00)
[2025-04-29 09:01] VITALS: BP 98/58; O2SAT 97
[2025-04-29 16:37] VITALS: BP 165/75
[2025-04-30 02:02] VITALS: BP 108/68
[2025-04-30 09:09] VITALS: BP 95/58; O2SAT 96
[2025-04-30] MEDS ORDERED: MORPHINE SULFATE 4 MG/ML CARTRIDGE IV PRN (11:00)
[2025-04-30] MEDS ORDERED: PROMETHAZINE HCL 25 MG/ML AMPUL IM PRN (11:00)
[2025-04-30 11:48] LABS: BASO % 0.3 % (0.1-1.2); EOS # 0.30 (0.04-0.54); EOS % 3.3 % (0.7-7.0); LYMPH # 0.97 (1.18-3.74); LYMPH % 10.8 % (19.3-53.1); MEAN PLATELET VOLUME 12.20 fl (9.4-12.4); MONO # 0.67 (0.24-0.82); MONO % 7.5 % (4.7-12.5); NEUT # 6.93 (1.56-6.13); NEUT % 77.1 % (34.0-71.1); RED CELL DISTRIBUTION WIDTH 13.2 % (11.6-14.4)
[2025-04-30 12:33] LABS: ERYTHROCYTE SEDIMENTATION RATE 57 mm/hr (0-20)
[2025-04-30 12:36] LABS: ALT/SGPT 154.0 U/L (12-78); AST/SGOT 125.0 U/L (15-37); BILIRUBIN TOTAL 0.43 mg/dL (0.3-1.2); BUN CREA RATIO 35.0 (7.0-25.0); CREATININE SERUM 0.66 mg/dL (0.55-1.02); GFR 95.19; GLOBULINA 3.6 G/DL (2.4-3.5)
[2025-04-30 12:38] LABS: GLUCOSE FASTING 232.0 mg/dL (65-100); OSMOLALITY SERUM 296.0 MOSM/KG (275-295)
[2025-04-30 16:08] VITALS: BP 145/68
[2025-04-30] MEDS ORDERED: EMOLLIENTS 6 OZ BOTTLE TOP SCH (17:00)
[2025-05-01 00:58] VITALS: BP 111/75; O2SAT 97
[2025-05-01 08:10] VITALS: BP 120/77
[2025-05-01 17:00] VITALS: BP 174/86
[2025-05-02 01:01] VITALS: BP 102/59
[2025-05-02 08:24] VITALS: BP 105/68; O2SAT 99
[2025-05-02] MEDS ORDERED: MORPHINE SULFATE 4 MG/ML CARTRIDGE IV PRN (16:15)
[2025-05-02] MEDS ORDERED: PROMETHAZINE HCL 25 MG/ML AMPUL ONE (17:56)
[2025-05-02] MEDS ORDERED: PROMETHAZINE HCL 25 MG/ML AMPUL IM PRN (18:00)
[2025-05-02 19:29] VITALS: BP 136/80; O2SAT 100
[2025-05-03] MEDS ORDERED: PROMETHAZINE HCL 25 MG/ML AMPUL ONE (01:19)
[2025-05-03 01:24] VITALS: BP 96/57; O2SAT 99
[2025-05-03] MEDS ORDERED: INSULIN GLARGINE,HUM.REC.ANLOG 1,000 UNITS/10 ML UNITS SUBCUTANEO SCH (09:00)
[2025-05-03 19:18] VITALS: BP 123/77; O2SAT 100
[2025-05-04 02:08] VITALS: BP 100/60; O2SAT 99
[2025-05-04 10:42] VITALS: BP 128/72; O2SAT 100
[2025-05-04 17:32] VITALS: BP 130/75; O2SAT 100
[2025-05-04] MEDS ORDERED: MORPHINE SULFATE 4 MG/ML CARTRIDGE IV PRN (18:15)
[2025-05-05 03:03] VITALS: BP 90/51; O2SAT 98
[2025-05-05 06:47] LABS: BASO % 0.6 % (0.1-1.2); EOS # 0.27 (0.04-0.54); EOS % 5.4 % (0.7-7.0); LYMPH # 1.09 (1.18-3.74); LYMPH % 21.7 % (19.3-53.1); MEAN PLATELET VOLUME 12.50 fl (9.4-12.4); MONO # 0.57 (0.24-0.82); MONO % 11.4 % (4.7-12.5); NEUT # 2.93 (1.56-6.13); NEUT % 58.3 % (34.0-71.1); RED CELL DISTRIBUTION WIDTH 12.9 % (11.6-14.4)
[2025-05-05 06:55] LABS: ALT/SGPT 209.0 U/L (12-78); AST/SGOT 197.0 U/L (15-37); BILIRUBIN TOTAL 0.42 mg/dL (0.3-1.2); BUN CREA RATIO 63.0 (7.0-25.0); CREATININE SERUM 0.72 mg/dL (0.55-1.02); GFR 86.09; GLOBULINA 3.6 G/DL (2.4-3.5); GLUCOSE FASTING 82.0 mg/dL (65-100); OSMOLALITY SERUM 294.0 MOSM/KG (275-295)
[2025-05-05 07:32] LABS: ERYTHROCYTE SEDIMENTATION RATE 75 mm/hr (0-20)
[2025-05-05 09:02] VITALS: BP 149/75; O2SAT 100
[2025-05-05 17:59] VITALS: BP 95/60
[2025-05-06 00:06] VITALS: BP 116/70; O2SAT 98
[2025-05-06 08:20] VITALS: BP 106/68
[2025-05-06 18:13] VITALS: BP 147/81
[2025-05-06] MEDS ORDERED: MORPHINE SULFATE 4 MG/ML CARTRIDGE IV PRN (20:45)
[2025-05-07 02:50] VITALS: BP 95/54; O2SAT 96
[2025-05-07 06:39] LABS: ALT/SGPT 331.0 U/L (12-78); AST/SGOT 319.0 U/L (15-37); BILIRUBIN TOTAL 0.33 mg/dL (0.3-1.2); BUN CREA RATIO 73.0 (7.0-25.0); CREATININE SERUM 0.59 mg/dL (0.55-1.02); GAMMA GLUTAMIL TRANSFERASE 427.0 U/L (5-55); GFR 108.33; GLOBULINA 4.0 G/DL (2.4-3.5); GLUCOSE FASTING 153.0 mg/dL (65-100); OSMOLALITY SERUM 301.0 MOSM/KG (275-295)
[2025-05-07 10:12] VITALS: BP 170/85; O2SAT 97
[2025-05-07] MEDS ORDERED: PROMETHAZINE HCL 25 MG/ML AMPUL IM PRN (10:45)
[2025-05-07 18:16] VITALS: BP 125/72
[2025-05-07 22:07] VITALS: BP 158/60; O2SAT 99
[2025-05-08 02:00] VITALS: BP 129/71; O2SAT 99
[2025-05-08 08:45] VITALS: BP 150/80; O2SAT 98
[2025-05-08] MEDS ORDERED: SULFAMETHOXAZOLE/TRIMETHOPRIM DS 1 TAB PO SCH (09:00)
[2025-05-08] MEDS ORDERED: CLONAZEPAM 0.5 MG TABLET PO ONE (14:45)
[2025-05-08 15:56] LABS: ALT/SGPT 233.0 U/L (12-78); AST/SGOT 105.0 U/L (15-37); BILIRUBIN TOTAL 0.7 mg/dL (0.3-1.2); BUN CREA RATIO 26.0 (7.0-25.0); CREATININE SERUM 0.53 mg/dL (0.55-1.02); GFR 122.61; GLOBULINA 4.5 G/DL (2.4-3.5)
[2025-05-08 15:58] LABS: GLUCOSE FASTING 206.0 mg/dL (65-100); OSMOLALITY SERUM 286.0 MOSM/KG (275-295)
[2025-05-08 17:00] VITALS: BP 153/77; O2SAT 100
[2025-05-08 20:20] LABS: BASO % 0.5 % (0.1-1.2); EOS # 0.23 (0.04-0.54); EOS % 3.1 % (0.7-7.0); LYMPH # 1.36 (1.18-3.74); LYMPH % 18.3 % (19.3-53.1); MEAN PLATELET VOLUME 11.90 fl (9.4-12.4); MONO # 0.56 (0.24-0.82); MONO % 7.5 % (4.7-12.5); NEUT # 5.14 (1.56-6.13); NEUT % 69.4 % (34.0-71.1); RED CELL DISTRIBUTION WIDTH 12.2 % (11.6-14.4)
[2025-05-08] MEDS ORDERED: MORPHINE SULFATE 4 MG/ML CARTRIDGE IV PRN (23:45)
[2025-05-09 02:53] VITALS: BP 105/59
[2025-05-09 06:55] LABS: ALT/SGPT 187.0 U/L (12-78); AST/SGOT 83.0 U/L (15-37); BILIRUBIN TOTAL 0.67 mg/dL (0.3-1.2)
[2025-05-09 06:56] LABS: BILIRUBIN,CONJUGATED 0.14 mg/dL (0.0-0.2)
[2025-05-09 08:01] VITALS: BP 119/76; O2SAT 98
[2025-05-09] MEDS ORDERED: LORazepam 2 MG/ML VIAL IM NR (09:50)
[2025-05-09] MEDS ORDERED: PROMETHAZINE HCL 25 MG/ML AMPUL IM PRN (16:00)
[2025-05-09 17:25] VITALS: BP 95/59
[2025-05-10 01:43] VITALS: BP 103/64; O2SAT 100
[2025-05-10 09:31] VITALS: BP 120/76
[2025-05-10] MEDS ORDERED: PROMETHAZINE HCL 50 MG/ML AMPUL IM PRN (14:45)
[2025-05-10 17:01] VITALS: BP 91/48
[2025-05-11 00:52] VITALS: BP 113/76; O2SAT 95
[2025-05-11 09:04] VITALS: BP 119/78
[2025-05-11] MEDS ORDERED: MORPHINE SULFATE 2 MG/ML CARTRIDGE IV PRN ×2 (09:15→09:30)
[2025-05-11 18:38] VITALS: BP 138/82
[2025-05-12 01:03] VITALS: BP 107/70; O2SAT 97
[2025-05-12 06:18] LABS: BASO % 0.4 % (0.1-1.2); EOS # 0.32 (0.04-0.54); EOS % 6.6 % (0.7-7.0); LYMPH # 1.30 (1.18-3.74); LYMPH % 26.9 % (19.3-53.1); MEAN PLATELET VOLUME 12.20 fl (9.4-12.4); MONO # 0.35 (0.24-0.82); MONO % 7.2 % (4.7-12.5); NEUT # 2.80 (1.56-6.13); NEUT % 58.1 % (34.0-71.1); RED CELL DISTRIBUTION WIDTH 12.3 % (11.6-14.4)
[2025-05-12 08:07] LABS: BAND MAN 5.0 %; EOSINOPHIL MAN 6.0 %; LYMPHOCYTE MAN 41.0 %; MONOCYTE MAN 3.0 %; NEUTROPHILS MAN 44.0 %
[2025-05-12 08:16] VITALS: BP 135/78
[2025-05-12 10:29] LABS: BUN CREA RATIO 32.0 (7.0-25.0); CREATININE SERUM 0.76 mg/dL (0.55-1.02); GFR 80.88; GLUCOSE FASTING 256.0 mg/dL (65-100); OSMOLALITY SERUM 294.0 MOSM/KG (275-295)
[2025-05-12 10:31] LABS: ALT/SGPT 82.0 U/L (12-78); AST/SGOT 33.0 U/L (15-37); BILIRUBIN TOTAL 0.34 mg/dL (0.3-1.2); GLOBULINA 3.4 G/DL (2.4-3.5)
[2025-05-12 19:17] VITALS: BP 119/63; O2SAT 97
[2025-05-12 22:31] LABS: BASO % 0.6 % (0.1-1.2); EOS # 0.44 (0.04-0.54); EOS % 5.4 % (0.7-7.0); LYMPH # 1.95 (1.18-3.74); LYMPH % 24.1 % (19.3-53.1); MEAN PLATELET VOLUME 12.20 fl (9.4-12.4); MONO # 0.48 (0.24-0.82); MONO % 5.9 % (4.7-12.5); NEUT # 5.08 (1.56-6.13); NEUT % 62.8 % (34.0-71.1); RED CELL DISTRIBUTION WIDTH 13.0 % (11.6-14.4)
[2025-05-13 00:34] VITALS: BP 100/50; O2SAT 98
[2025-05-13] MEDS ORDERED: PROMETHAZINE HCL 50 MG/ML AMPUL IM PRN (05:45)
[2025-05-13 09:00] VITALS: BP 95/57; O2SAT 98
[2025-05-13] MEDS ORDERED: MORPHINE SULFATE 2 MG/ML CARTRIDGE IV PRN ×2 (09:45→10:15)
== END 2025-05-13 11:04 | disposition home or self-care (01) | DRG 592 ==
LOC: ER 19:51 → SURH 23:23 → SURG 23:23 → SURH 03-29 11:37 → MEDI 04-16 15:03
PROVIDERS: Emergency Medicine; General Practice; Internal Medicine; Internal Medicine Infectious Disease; Student in an Organized Health Care Education/Training Program; ADMIT Internal Medicine; ATTEND Internal Medicine
PROC: BQ3FZZZ Magnetic Resonance Imaging (MRI) of Left Lower Leg (ICD-10-PCS; 2025-03-24)
PROC: B54DZZZ Ultrasonography of Bilateral Lower Extremity Veins (ICD-10-PCS; 2025-03-24)
PROC: 02HV33Z Insertion of Infusion Device into Superior Vena Cava, Percutaneous Approach (ICD-10-PCS; 2025-03-25)
PROC: 0HBNXZZ Excision of Left Foot Skin, External Approach (ICD-10-PCS; principal; 2025-03-31)
PROC: BW21ZZZ Computerized Tomography (CT Scan) of Abdomen and Pelvis (ICD-10-PCS; 2025-03-31)
PROC: BW40ZZZ Ultrasonography of Abdomen (ICD-10-PCS; 2025-05-07)
PROC: 30243N1 Transfusion of Nonautologous Red Blood Cells into Central Vein, Percutaneous Approach (ICD-10-PCS; 2025-05-12)
DX: L97.529 Non-pressure chronic ulcer of other part of left foot with unspecified severity (principal); N18.6 End stage renal disease; K86.1 Other chronic pancreatitis; L02.612 Cutaneous abscess of left foot; M86.9 Osteomyelitis, unspecified; F19.20 Other psychoactive substance dependence, uncomplicated; Z79.4 Long term (current) use of insulin; I10 Essential (primary) hypertension; F43.23 Adjustment disorder with mixed anxiety and depressed mood; D64.9 Anemia, unspecified; E11.40 Type 2 diabetes mellitus with diabetic neuropathy, unspecified; E03.9 Hypothyroidism, unspecified; I25.10 Atherosclerotic heart disease of native coronary artery without angina pectoris; M79.7 Fibromyalgia; R79.82 Elevated C-reactive protein (CRP); F41.9 Anxiety disorder, unspecified; F12.10 Cannabis abuse, uncomplicated; I87.8 Other specified disorders of veins
CPT/HCPCS: 73725